=== PATIENT | female | born 1990 | race Caucasian/White ===

== ENCOUNTER 2021-01-21 09:21 | Observation (INO) ==
[2021-01-21] MEDS ORDERED: IOPAMIDOL 100 ML BOTTLE IV ONE (09:22)
[2021-01-21] MEDS ORDERED: 0.9 % SODIUM CHLORIDE 1,000 ML IV ONE (09:34)
--- NOTE | 2021-01-21 09:37 | Emergency Department Note ---
HPI General Chief complaint: Cold/Flu Symptoms Stated complaint: Cold/Flu Time Seen by Provider: 01/21/21 11:34 Source: patient Mode of arrival: wheelchair Limitations: no limitations History of Present Illness HPI Narrative: Narrative: Patient presents emergency department for evaluation of 1 week history of exerti onal shortness of breath. Her Fitbit has registered her resting heart rate to be 1 10-1 50. Symptoms are associated with mild cough, congestion, body aches. She is referred to the emergency department by her primary care provider for further evaluation. No other complaints. Related Data Home Medications Medication Instructions Recorded Confirmed cholecalciferol (vitamin D3) 50 50 mcg PO QDAY cap 08/06/20 01/21/21 mcg (2,000 unit) capsule Previous Rx's Medication Instructions Recorded hydroxyzine HCl 50 mg tablet 50 mg PO TID PRN #90 tab 12/28/20 meloxicam 15 mg tablet 15 mg PO QDAY #90 tab 12/28/20 bupropion HCl 150 mg 24 hr tablet, 150 mg PO QAM #60 tab 01/18/21 extended release desogestrel 0.15 mg-ethinyl 1 tab PO QDAY #84 tab 01/18/21 estradiol 0.03 mg tablet lorazepam 0.5 mg tablet 0.5 mg PO QDAY PRN #30 tab MDD 1 01/18/21 propranolol 60 mg capsule,24 60 mg PO QHS #90 cap 01/18/21 hr,extended release spironolactone 25 mg tablet 25 mg PO QDAY #30 tab 01/18/21 duloxetine 30 mg capsule,delayed 90 mg PO QDAY #90 cap 01/19/21 release Allergies Allergy/AdvReac Type Severity Reaction Status Date / Time Penicillins Allergy Intermediate Hives Verified 12/28/20 12:59 Review of Systems ROS ROS Narrative: Narrative: As above, all other system reviewed and negative. PFSH Narrative Patient History Narrative: Narrative: Reviewed Medical/Surgical/Family History All Active Problems (Updated 01/21/21 @ 16:51 by Jai Crabtree MD) Pulmonary embolism (Acute) Shortness of breath (Acute) Hypersomnia (Acute) Lower extremity edema (Chronic) Low back pain (Acute) Generalized hyperhidrosis (Acute) Right knee pain (Acute) Nausea (Acute) Cough (Acute) Sore throat (Acute) Benign essential tremor (Acute) Depression (Acute) Sore throat (Chronic) History of surgery (Chronic) Radiculopathy, cervical region (Chronic) Spondylosis without myelopathy or radiculopathy, cervical region (Chronic) Bereavement reaction (Chronic) Occasional tremors (Chronic) Wellness examination (Chronic) History of surgical procedure (Chronic) History of tonsillectomy (Chronic ~2013) Osteoarthritis of neck (Chronic ~2015) Migraines (Chronic ~2015) Joint pain (Chronic ~2009) Insomnia (Chronic ~2017) Depression (Chronic ~2007) Arthritis of neck (Chronic ~2015) Anxiety (Chronic ~2014) Anemia (Chronic ~2011) URI, acute (Chronic) Polycystic ovarian syndrome (Chronic ~2015) Obesity (Chronic) Hypertension (Chronic) Chronic pain (Chronic) Cervicalgia (Chronic) Myofascial pain (Chronic) Ankle sprain and strain (Chronic) Medical History Anemia (~2011) Anxiety (~2014) Arthritis of neck (~2015) Cervicalgia Chronic pain Cough Depression (~2007) Hypertension Insomnia (~2017) Joint pain (~2009) ankles/neck Migraines (~2015) Myofascial pain Nausea Obesity Occasional tremors Osteoarthritis of neck (~2015) Polycystic ovarian syndrome (~2015) Radiculopathy, cervical region Right knee pain Sore throat Spondylosis without myelopathy or radiculopathy, cervical region Surgical History History of surgery MBB #2 Bilat C2-7 w/sed 02/10/2001/05 MBB #1 Bilat C2-7 w/sed 01/16/2011/05 ANGELIQUE #2 w/cath, w/sed 11/14/1911/05 ANGELIQUE #1 w/cath, w/sed 10/24/2019 History of surgical procedure IV catheter steroid injections in neck-2019. Nerve block in neck History of tonsillectomy (~2013) Family History Mother Arthritis Type 1 diabetes High blood pressure Thyroid disease Chronic pain Drug abuse Father Arthritis Drug abuse Type 1 diabetes Alcohol abuse Family/Other Heart disease Grandparent Type 1 diabetes Grandparent Other Breast cancer Dementia Social History Smoking Status: Never smoker Alcohol Intake Frequency: holiday/special occasion only Substance Use: does not use Exam Narrative Narrative: Narrative: Vital signs blood pressure 120/92 pulse 98 temperature 97.0 respirations 18 satting 96%. General Limitations: no limitations Head Head: Present atraumatic, normocephalic and normal inspection Eye Eye: Present normal appearance, PERRL and EOMI ENT ENT: Present normal exam Neck Neck: Present normal inspection; Absent meningismus Respiratory Respiratory: Absent respiratory distress Extremities Extremities: Present normal inspection Neurological Neurological: Present alert, oriented X3 and CN II-XII intact; Absent motor sensory deficit Psychiatric Psychiatric: Present normal affect and normal mood Skin Skin: Present warm (WNL) and dry Course Vital Signs Vital signs: Vital Signs Temperature 97.0 F 01/21/21 09:23 Pulse Rate 98 H 01/21/21 09:23 Respiratory Rate 18 01/21/21 09:23 Blood Pressure 128/92 01/21/21 09:23 Pulse Oximetry (%) 96 01/21/21 09:23 Temperature 97.0 F 01/21/21 09:23 Pulse Rate 87 01/21/21 16:01 Respiratory Rate 17 01/21/21 10:51 Blood Pressure 130/85 01/21/21 16:01 Pulse Oximetry (%) 94 01/21/21 16:01 [facility] MDM Narrative Medical decision making narrative: Narrative: EKG shows sinus rhythm, no acute ischemic changes, intervals otherwise normal. Chest x-ray shows no acute cardiopulmonary pathology. Patient is hydrated IV fluids. CT is read by radiology as positive for bilateral pulmonary embolism. I spoke with Dr. Donahue local interventional radiologist. Case reviewed in detail over the phone. Interventional radiology did not feel the patient needed lysis at this time. The patient was medicated with Lovenox 150 mg after discussion with pharmacy. I spoke with on-call hospitalist. Case reviewed in detail over phone. Hospitalist agreed with admission. Discussed findings with patient. Her quest ions were answered. She is agreeable with the plan. Lab Data Result diagrams: 01/21/21 11:12 01/21/21 11:12 Labs: Lab Results 01/21/21 01/21/21 01/21/21 Range/Units 11:12 11:12 11:12 WBC 9.1 (4.5-11.0) K/mcL RBC 4.71 (4.00-5.20) M/mcL Hgb 14.3 (12.0-15.0) g/dL Hct 42.5 (36.0-48.0) % MCV 90.2 (80.0-100.0) fL MCH 30.4 (26.0-34.0) pg MCHC 33.6 (31.0-36.0) g/dL RDW 12.5 (11.5-14.5) % Plt Count 249 (140-440) K/mcL MPV 9.4 (7.4-10.4) fL Neut % (Auto) 68.1 (38.0-78.0) % Lymph % (Auto) 23.8 (15.0-49.0) % [place] % (Auto) 6.3 (1.0-12.0) % Eos % (Auto) 1.4 (0.0-7.0) % Baso % (Auto) 0.4 (0.0-2.0) % Lymph # (Auto) 2.17 (1.50-4.80) K/mcL [place] # (Auto) 0.57 (0.10-0.90) K/mcL Eos # (Auto) 0.13 (0.00-0.70) K/mcL Baso # (Auto) 0.04 (0.00-0.20) K/mcL Absolute Neutrophils 6.21 (1.80-8.00) K/mcL Sodium 134 (133-145) mmol/L Potassium 4.4 (3.3-5.1) mmol/L Chloride 102 (96-108) mmol/L Carbon Dioxide 21 L (22-30) mmol/L Anion Gap 11.0 (8.0-16.0) BUN 11 (6-20) mg/dL Creatinine 0.7 (0.6-1.1) mg/dL GFR Calculation 117 Glucose 101 (70-105) mg/dL Calcium 8.4 L (8.6-10.4) mg/dL Troponin T < 0.01 (<0.03) ng/mL ED POC Tests ED POC Tests: DAVONTE - SARS Antigen Negative Discharge Plan Patient/Caregiver Discharge Instructions Pt seen by SOFTWARE REVERSE ENGINEER/PA only: No Clinical Impression: Pulmonary embolism Patient Disposition: Xfer As Inpt ([facility]) Follow up with: Linda Guillaume PA-C [Primary Care Provider] - Prescriptions: No Action spironolactone 25 mg tablet 25 mg PO QDAY Qty: 30 RF: 3 desogestrel-ethinyl estradiol [Enskyce] 0.15-0.03 mg tablet 1 tab PO QDAY Qty: 84 RF: 1 propranolol 60 mg capsule,extended release 24 hr 60 mg PO QHS Qty: 90 RF: 1 bupropion HCl [Wellbutrin XL] 150 mg tablet extended release 24 hr 150 mg PO QAM Qty: 60 RF: 1 lorazepam 0.5 mg tablet 0.5 mg PO QDAY MDD 1 PRN (Reason: anxiety) Qty: 30 RF: 0 duloxetine 30 mg capsule,delayed release(DR/EC) 90 mg PO QDAY Qty: 90 RF: 2 cholecalciferol (vitamin D3) [Vitamin D3] 50 mcg (2,000 unit) capsule 50 mcg PO QDAY RF: 0 hydroxyzine HCl 50 mg tablet 50 mg PO TID PRN (Reason: anxiety) Qty: 90 RF: 2 meloxicam 15 mg tablet 15 mg PO QDAY Qty: 90 RF: 1
--- NOTE | 2021-01-21 10:07 | XRay Report ---
INDICATION: sob TECHNIQUE: AP portable semiupright chest x-ray COMPARISON: None FINDINGS: Lungs:Lungs are negative. No focal pulmonary parenchymal infiltrate or mass Heart, vascular:No significant cardiomegaly. Pulmonary vascularity is normal. No pulmonary edema or pulmonary congestion. Heart size appears prominent but this is probably due to patient's large body habitus, and AP positioning Mediastinum, juan:No mediastinal widening. No hilar mass Pleura:No pleural fluid. No pleural-based mass or calcification Skeletal:Negative. IMPRESSION: Negative AP chest x-ray Interpreted and Authenticated by: Nicolas Graham 01/21/21
[2021-01-21 11:44] LABS: Basophils # (Auto) 0.04 K/mcL (0.00-0.20); Basophils % (Auto) 0.4 % (0.0-2.0); Eosinophils # (Auto) 0.13 K/mcL (0.00-0.70); Eosinophils % (Auto) 1.4 % (0.0-7.0); Hematocrit 42.5 % (36.0-48.0); Hemoglobin 14.3 g/dL (12.0-15.0); Lymphocytes # (Auto) 2.17 K/mcL (1.50-4.80); Lymphocytes % (Auto) 23.8 % (15.0-49.0); Mean Cell Volume 90.2 fL (80.0-100.0); Mean Corpuscular HGB Conc 33.6 g/dL (31.0-36.0); Mean Platelet Volume 9.4 fL (7.4-10.4); Monocytes # (Auto) 0.57 K/mcL (0.10-0.90); Monocytes % (Auto) 6.3 % (1.0-12.0); Neutrophils % (Auto) 68.1 % (38.0-78.0); Platelet Count 249 K/mcL (140-440); RBC 4.71 M/mcL (4.00-5.20); Red Cell Distribution Width 12.5 % (11.5-14.5); WBC 9.1 K/mcL (4.5-11.0)
[2021-01-21 12:11] LABS: Blood Urea Nitrogen 11 mg/dL (6-20); Calcium 8.4 mg/dL (8.6-10.4); Carbon Dioxide 21 mmol/L (22-30); Chloride 102 mmol/L (96-108); Glomerular Filtration Rate 117; Glucose 101 mg/dL (70-105)
--- NOTE | 2021-01-21 12:37 | Cat Scan Report ---
INDICATION: sob, tachycardia, oral control COMPARISON: Previous chest x-ray dated 01/21/2021 TECHNIQUE: Axial images obtained through the chest. 90ml Isovue 370 injected intravenously, and scanning was performed during pulmonary arterial phase. Sagittally and coronally reformatted images were obtained. MIP reformatted images. FINDINGS: Lungs:There are groundglass infiltrates in both lower lobes. Mild groundglass infiltrate in the right upper lobe. These are not apparent on plain film examination. Appearance and distribution are not typical for pulmonary infarction. Underlying covid pneumonia is suspected Mediastinum, vascular:Main pulmonary artery, right pulmonary artery, left pulmonary artery are negative. There are intraluminal emboli within both lower lobe pulmonary arteries as well as segmental lower lobe arteries bilaterally. Appearance is consistent with pulmonary emboli. There is clot in the left upper lobe pulmonary artery and segmental branches. Right upper lobe pulmonary artery is negative. There is clot within the right middle lobe pulmonary artery as well as medial and lateral segmental branches Heart:No cardiomegaly. No pericardial effusion. There is minimal reflux of contrast material into the inferior vena cava. Hepatic veins are negative. Mild right heart strain corrected Pleura:No significant pleural effusion. No pleural mass or calcification Axilla, supraclavicular regions, chest wall:No pathologic axillary or supraclavicular adenopathy. Musculoskeletal:Negative thoracic spine. No compression fracture. No lytic lesion. No rib or sternal lesions Upper Abdomen:Negative IMPRESSION: 1. Positive examination for pulmonary emboli. Lobar and segmental clot identified as above. Main pulmonary artery, right pulmonary artery, left pulmonary artery are negative. 2. Minimal reflux of contrast material into the inferior vena cava 3. Groundglass parenchymal infiltrates suggests underlying covid pneumonia The exam was performed using radiation dose optimization techniques including, but not limited to, automated exposure control, adjustment of the mA and/or kV according to patient size and use of iterative reconstruction technique. Interpreted and Authenticated by: Nicolas Graham 01/21/21
[2021-01-21] MEDS ORDERED: ENOXAPARIN 150 MG/ML SYRINGE SQ ONE ×3 (12:44→13:14)
[2021-01-21] MEDS ORDERED: ENOXAPARIN 30 MG/0.3 ML SYRINGE SQ ONE (13:00)
[2021-01-21] MEDS ORDERED: LORazepam 0.5 MG TABLET PO ONE (14:13)
--- NOTE | 2021-01-21 15:20 | Internal Med History&Physical ---
HPI History of Present Illness Patient information: Note initiated : 01/21/21 at 3:14 pm Service Date, if different from initiated Date: [] Patient: Dolly Hurst a 30 y/o F admitted on for Cold/Flu. Chief Complaint: [] History of present illness: Ms. Hurst is a 30 year old F Presents the ED with shortness of breath. Patient noticed sudden onset shortness of breath on Monday and has not gotten any better. She gets severely short of breath with any exertion and getting up and just walk across the room. In the ED her heart rate was initially 150. Blood pressure was stable. She was satting well on room air. Labs were unremarkable. She received a Covid vaccine in July. Denies chest pain. Denies cough. She had a moderate amount of clot burden including bilateral lower lobe pulmonary arteries and segmental lower lobe bilaterally. Also clot in left upper lobe pulmonary artery and segmental branches. Right upper lobe pulmonary artery negative and clot in the right middle lobe pulmonary artery and medial lateral segments. CTA only mild strain. Case discussed with Dr. Donahue who felt she did not need any lysis but but did recommend heparin initiation and then transition to DOAC.. She denies a history of clots or family history of clots. Does have risk factor of obesity but also is on an estrogen-containing oral contraceptive pill. Review of Systems: Pertinent positives as above plus headaches which are common for her. Denies fever/chills/nausea/vomiting/chest or abdominal pain/cough/diarrhea. Remaining 10 point review of system reviewed negative PFSH PFSH All Active Problems Shortness of breath (Acute) Hypersomnia (Acute) Lower extremity edema (Chronic) Low back pain (Acute) Generalized hyperhidrosis (Acute) Right knee pain (Acute) Nausea (Acute) Cough (Acute) Sore throat (Acute) Benign essential tremor (Acute) Depression (Acute) Sore throat (Chronic) History of surgery (Chronic) Radiculopathy, cervical region (Chronic) Spondylosis without myelopathy or radiculopathy, cervical region (Chronic) Bereavement reaction (Chronic) Occasional tremors (Chronic) Wellness examination (Chronic) History of surgical procedure (Chronic) History of tonsillectomy (Chronic ~2013) Osteoarthritis of neck (Chronic ~2015) Migraines (Chronic ~2015) Joint pain (Chronic ~2009) Insomnia (Chronic ~2017) Depression (Chronic ~2007) Arthritis of neck (Chronic ~2015) Anxiety (Chronic ~2014) Anemia (Chronic ~2011) URI, acute (Chronic) Polycystic ovarian syndrome (Chronic ~2015) Obesity (Chronic) Hypertension (Chronic) Chronic pain (Chronic) Cervicalgia (Chronic) Myofascial pain (Chronic) Ankle sprain and strain (Chronic) Medical History Anemia (~2011) Anxiety (~2014) Arthritis of neck (~2016) Cervicalgia Chronic pain Cough Depression (~2007) Hypertension Insomnia (~2017) Joint pain (~2009) ankles/neck Migraines (~2015) Myofascial pain Nausea Obesity Occasional tremors Osteoarthritis of neck (~2015) Polycystic ovarian syndrome (~2015) Radiculopathy, cervical region Right knee pain Sore throat Spondylosis without myelopathy or radiculopathy, cervical region Surgical History History of surgery MBB #2 Bilat C2-7 w/sed 02/10/2001/05 MBB #1 Bilat C2-7 w/sed 01/16/2011/05 ANGELIQUE #2 w/cath, w/sed 11/14/1911/05 ANGELIQUE #1 w/cath, w/sed 10/24/2019 History of surgical procedure IV catheter steroid injections in neck-2019. Nerve block in neck History of tonsillectomy (~2013) Family History Mother Arthritis Type 1 diabetes High blood pressure Thyroid disease Chronic pain Drug abuse Father Arthritis Drug abuse Type 1 diabetes Alcohol abuse Family/Other Heart disease Grandparent Type 1 diabetes Grandparent Other Breast cancer Dementia Social History marital status: single education level: college occupational status: employed occupation: [employer] smoking status: Never smoker alcohol intake frequency: holiday/special occasion only substance use type: does not use MEDS/ALLERGIES Home Medications and Allergies Home Medications Medication Instructions Recorded Confirmed Type cholecalciferol (vitamin D3) 50 50 mcg PO QDAY cap 08/06/20 01/21/21 History mcg (2,000 unit) capsule hydroxyzine HCl 50 mg tablet 50 mg PO TID PRN #90 tab 12/28/20 01/21/21 Rx meloxicam 15 mg tablet 15 mg PO QDAY #90 tab 12/28/20 01/21/21 Rx bupropion HCl 150 mg 24 hr tablet, 150 mg PO QAM #60 tab 01/18/21 01/21/21 Rx extended release desogestrel 0.15 mg-ethinyl 1 tab PO QDAY #84 tab 01/18/21 01/21/21 Rx estradiol 0.03 mg tablet lorazepam 0.5 mg tablet 0.5 mg PO QDAY PRN #30 tab MDD 1 01/18/21 01/21/21 Rx propranolol 60 mg capsule,24 60 mg PO QHS #90 cap 01/18/21 01/21/21 Rx hr,extended release spironolactone 25 mg tablet 25 mg PO QDAY #30 tab 01/18/21 01/21/21 Rx duloxetine 30 mg capsule,delayed 90 mg PO QDAY #90 cap 01/19/21 01/21/21 Rx release Allergies Allergy/AdvReac Type Severity Reaction Status Date / Time Penicillins Allergy Intermediate Hives Verified 12/28/20 12:59 EXAM Constitutional Vitals: Temp Pulse Resp BP Pulse Ox 97.0 F 90 17 132/96 95 01/21/21 09:23 01/21/21 14:31 01/21/21 10:51 01/21/21 14:31 01/21/21 14:31 Exam: General: Alert, Awake, No acute distress, obese Eyes/N/T: EOMI, PERRL, Head/Neck: neck supple, normocephalic atraumatic CV: RRR, No murmurs, normal s1/s2 Pulm: Clear b/l, no wheezing/rhonchi/rales Abd: soft, nontender, +BS x4 Ext: no clubbing/cyanosis/edema Neuro: Alert, no focal deficits, moves all extremities, CN 2-12 grossly intact, symmetrical strength b/l upper/lower, sensations intact b/l upper/lower Skin: warm/dry DATA Data Completed and Pending Labs: Labs from last 24 hours 01/21/21 01/21/21 01/21/21 11:12 11:12 11:12 WBC 9.1 RBC 4.71 Hgb 14.3 Hct 42.5 MCV 90.2 MCH 30.4 MCHC 33.6 RDW 12.5 Plt Count 249 MPV 9.4 Neut % (Auto) 68.1 Lymph % (Auto) 23.8 [place] % (Auto) 6.3 Eos % (Auto) 1.4 Baso % (Auto) 0.4 Lymph # (Auto) 2.17 [place] # (Auto) 0.57 Eos # (Auto) 0.13 Baso # (Auto) 0.04 Absolute Neutrophils 6.21 Sodium 134 Potassium 4.4 Chloride 102 Carbon Dioxide 21 L Anion Gap 11.0 BUN 11 Creatinine 0.7 GFR Calculation 117 Glucose 101 Calcium 8.4 L Troponin T < 0.01 A/P Narrative A/P Narrative: A: *b/l pulmonary emboli, moderate burden: -Tachycardic but not hypoxic at this point *Obesity: *PCOS: *dePression/anxiety: * P: -IV heparin for 24-hours then DOAC -hypercoag w/u -d/c OCP (has estrogen component) -monitor for o2 needs -cont psych meds - -ppx: heparin Time Spent With Patient Time: Total time spent is greater than 50% in coordination of care (as documented) at patient's floor/unit and/or counseling patient:
--- NOTE | 2021-01-21 16:01 | EKG ---
[facility] Test Date: 2021-01-21 Pat Name: Dolly Hurst Department: ED Room: Gender: Female Chemical Maker: BEE : 1990 Requested By: Jai Crabtree Order Number: [id number] Reading MD: Juan Dunbar M.D. Measurements Intervals [place] Rate: 94 P: 69 MS: 137 QRS: 91 QRSD: 84 T: 61 QT: 394 QTc: 493 Interpretive Statements Sinus rhythm Borderline right axis deviation Borderline prolonged QT interval Baseline wander in lead(s) V2,V3,V4,V5,V6 NO PRIOR TRACING FOR COMPARISON BORDERLINE TRACING Electronically Signed On 01-21-2021 16:00:50 PDT by Juan Dunbar M.D. /[facility] [place]//[id number]/ecg/[id number]
[2021-01-21] MEDS ORDERED: IPRATROPIUM/ALBUTEROL 3 ML AMPUL.NEB NEB PRN (19:26)
[2021-01-21] MEDS ORDERED: POTASSIUM CHLORIDE 20 MEQ TABLET PO PRN ×2 (19:26)
[2021-01-21] MEDS ORDERED: ACETAMINOPHEN 325 MG TABLET PO PRN (19:26)
[2021-01-21] MEDS ORDERED: MAGNESIUM SULFATE 2 GM/50 ML BAG IV PRN (19:26)
[2021-01-21] MEDS ORDERED: SENNOSIDES 1 TABLET PO PRN (19:26)
[2021-01-21] MEDS ORDERED: POTASSIUM CHLORIDE 40 MEQ in DEXTROSE 5% IN WATER 500 ML IV PRN (19:26)
[2021-01-21] MEDS ORDERED: LORazepam 0.5 MG TABLET PO PRN (19:26)
[2021-01-21] MEDS ORDERED: ONDANSETRON 4 MG/2 ML VIAL IV PRN (19:26)
[2021-01-21] MEDS: 0.9 % SODIUM CHLORIDE 10 ML SYRINGE IV SCH (20:45)
[2021-01-21] MEDS ORDERED: hydrOXYzine 25 MG TABLET PO PRN (21:11)
[2021-01-21] MEDS ORDERED: MELOXICAM 7.5 MG TABLET PO PRN (21:12)
[2021-01-21] MEDS: DOCUSATE SODIUM 100 MG CAPSULE PO SCH (21:12)
[2021-01-21] MEDS: PROPRANOLOL 60 MG CAP.XL.24H PO SCH (21:26)
[2021-01-22] MEDS: 0.9 % SODIUM CHLORIDE 10 ML SYRINGE IV SCH ×4 (00:05→20:06)
[2021-01-22] MEDS: HEPARIN SOD,PORK IN 0.45% NACL 25,000 UNIT in PREMIX 1 BAG IV SCH ×3 (00:10→23:46)
[2021-01-22] MEDS ORDERED: PREMIX 2 BAG IV ONE (00:21)
[2021-01-22] MEDS: DOCUSATE SODIUM 100 MG CAPSULE PO SCH ×2 (07:54→19:42)
--- NOTE | 2021-01-22 07:54 | Internal Med Progress Note ---
SUBJECTIVE Subjective Patient information: Note initiated : 01/22/21 at 7:50 am Service Date, if different from initiated Date: [] Patient: Dolly Hurst a 30 y/o F admitted on 01/21/21 for Cold/Flu. Chief Complaint: [] Interval history: History of present illness: Ms. Hurst is a 30 year old F Presents the ED with shortness of breath. Patient noticed sudden onset shortness of breath on Monday and has not gotten any better. She gets severely short of breath with any exertion and getting up and just walk across the room. In the ED her heart rate was initially 150. Blood pressure was stable. She was satting well on room air. Labs were unremarkable. She received a Covid vaccine in July. Denies chest pain. Denies cough. She had a moderate amount of clot burden including bilateral lower lobe pulmonary arteries and segmental lower lobe bilaterally. Also clot in left upper lobe pulmonary artery and segmental branches. Right upper lobe pulmonary artery negative and clot in the right middle lobe pulmonary artery and medial lateral segments. CTA only mild strain. Case discussed with Dr. Donahue who felt she did not need any lysis but but did recommend heparin initiation and then transition to DOAC.. She denies a history of clots or family history of clots. Does have risk factor of obesity but also is on an estrogen-containing oral contraceptive pill. 01/22 Doing a little better today. Adjusting heparin drip. No new complaints. Not tachycardic anymore. Continue insulin drip overnight and transition to Eliquis in the morning and then discharge patient Did have some nausea but no other complaints. Review of Systems: denies headache/fever/chills/vomiting/chest or abdominal pain/cough/dyspnea/diarrhea. Otherwise see above. Constitutional Vitals: Vital Signs Temp Pulse Resp BP Pulse Ox 97.3 F 73 22 133/62 96 01/22/21 04:01 01/22/21 04:01 01/22/21 02:01 01/22/21 04:01 01/22/21 04:01 Period Temp Pulse Resp BP Sys/Jamison Pulse Ox Last 24 Hr 97.0 F-97.5 F 73-98 17-30 110-153/59-106 94-100 Intake and Output 01/21/21 01/22/21 01/22/21 21:59 05:59 13:59 Intake Total 360 Output Total 800 Balance -440 Weight 176.72 kg Intake & Output: Intake & Output 01/21/21 01/22/21 01/22/21 21:59 05:59 13:59 Intake Total 360 Output Total 800 Balance -440 Weight 176.72 kg Intake: Oral 360 Output: Void Amount 800 Other: Meal Snack-2 tuna salads with crackers Percent of Meal Consumed 100% Urine Appearance Clear Urine Color Dark [place] Urine Odor Normal Exam: General: Alert, Awake, No acute distress, obese Eyes/N/T: EOMI, , Head/Neck: neck supple, CV: RRR, No murmurs, Pulm: Clear b/l, no wheezing/rhonchi/rales Abd: soft, nontender, +BS x4 Ext: no clubbing/cyanosis/edema Neuro: Alert, no focal deficits, moves all extremities, Skin: warm/dry OBJ DATA Labs CBC & Chem 7: 01/21/21 11:12 01/21/21 11:12 Labs: Abnormal Lab Results 01/21/21 11:12 Carbon Dioxide 21 L Calcium 8.4 L Meds: Medications Acetaminophen (Acetaminophen 325 Mg Tablet) 650 mg PO Q6HP PRN PRN Reason: PAIN/FEVER > 101 Last Admin: 01/21/21 21:26 Dose: 650 mg Documented by: Albuterol/Ipratropium (Ipratropium/Albuterol 3 Ml Ampul.Neb) 3 ml NEB Q4HP PRN PRN Reason: Shortness Of Breath Bupropion HCl (Bupropion 150 Mg Tab.Xl.24h) 150 mg PO QAM NENA Docusate Sodium (Docusate Sodium 100 Mg Capsule) 100 mg PO BID NENA Last Admin: 01/21/21 21:12 Dose: Not Given Documented by: Duloxetine HCl (Duloxetine 30 Mg Capsule) 90 mg PO QDAY NENA Hydroxyzine HCl (Hydroxyzine 25 Mg Tablet) 50 mg PO TIDP PRN PRN Reason: anxiety Potassium Chloride 40 meq/ (Dextrose) 520 mls @ 130 mls/hr IV UD PRN PRN Reason: Potassium < 3 Magnesium Sulfate (Magnesium Sulfate) 2 gm in 50 mls @ 50 mls/hr IV UD PRN PRN Reason: Magnesium </= 1.6 Heparin Sodium/Sodium Chloride (25,000 unit/ Premix) 500 mls @ 36.72 mls/hr IV .[id number] [facility]; Protocol Last Admin: 01/22/21 00:10 Dose: 18 unit/kg/hr, 36.72 mls/hr Documented by: Lorazepam (Lorazepam 0.5 Mg Tablet) 0.5 mg PO QDAY PRN PRN Reason: anxiety Meloxicam (Meloxicam 7.5 Mg Tablet) 15 mg PO DAILYP PRN PRN Reason: Pain Ondansetron HCl (Ondansetron 4 Mg/2 Ml Vial) 4 mg IV Q4HP PRN PRN Reason: Nausea And Vomiting Potassium Chloride (Potassium Chloride 20 Meq Tablet) 40 meq PO UD PRN PRN Reason: Potssium is 3-3.5 Potassium Chloride (Potassium Chloride 20 Meq Tablet) 40 meq PO UD PRN PRN Reason: Potassium < 3 Propranolol HCl (Propranolol 60 Mg Cap.Xl.24h) 60 mg PO QHS [facility] Last Admin: 01/21/21 21:26 Dose: 60 mg Documented by: Senna (Sennosides 1 Tablet) 2 tab PO DAILYP PRN PRN Reason: Constipation Sodium Chloride (0.9 % Sodium Chloride 10 Ml Syringe) 10 ml IV Q8 [facility] Last Admin: 01/22/21 05:57 Dose: 10 ml Documented by: Spironolactone (Spironolactone 25 Mg Tablet) 25 mg PO QDAY [facility] A/P Narrative A/P Narrative: A: *b/l pulmonary emboli, moderate burden: -on admit pt Tachycardic but not hypoxic *Obesity: *PCOS: *depression/anxiety: P: -IV heparin today and transition to DOAC in morning -hypercoag w/u pending, send out labs -d/c home OCP (has estrogen component) -monitor for o2 needs -cont psych meds -ppx: heparin Time Spent With Patient Time: Total time spent is greater than 50% in coordination of care (as documented) at patient's floor/unit and/or counseling patient: QUALITY Stroke Symptom Onset Unknown: No VTE Deep Vein Thrombosis/Pulmonary Embolism Present on Admission: Yes
[2021-01-22] MEDS: DULoxetine 30 MG CAPSULE PO SCH (08:01)
[2021-01-22] MEDS: SPIRONOLACTONE 25 MG TABLET PO SCH (08:01)
[2021-01-22] MEDS: buPROPion 150 MG TAB.XL.24H PO SCH (08:01)
[2021-01-22] MEDS ORDERED: HEPARIN 5,000 UNIT/ML VIAL IV ONE ×2 (09:30→18:39)
--- NOTE | 2021-01-22 11:26 | Discharge Summary ---
Discharge Provider Provider Patient information: Note initiated : 01/22/21 at 11:24 am Service Date, if different from initiated Date: [] Patient: Dolly Hurst a 30 y/o F admitted on 01/21/21 for Cold/Flu. Chief Complaint: [] Date of admission: 01/21/21 19:05 Discharge date: 01/23/21 Primary care physician: Linda Guillaume PA-C Consults: 01/22/21 07:25 Consult to Physician [CONS] Routine Comment: Consulting Provider: Cirilo Ritter Reason For Exam: Physician to Consult Discharge Meds Discharge Medications Home Medications cholecalciferol (vitamin D3) 50 mcg (2,000 unit) capsule 50 mcg PO QDAY cap 08/06/20 [History Confirmed 01/21/21 Last Taken 01/21/21 08:00] hydroxyzine HCl 50 mg tablet 50 mg PO TID PRN #90 tab 12/28/20 [Rx Confirmed 01/21/21 Last Taken 01/20/21 19:30] meloxicam 15 mg tablet 15 mg PO QDAY #90 tab 12/28/20 [Rx Confirmed 01/21/21 Last Taken 01/20/21 08:00] lorazepam 0.5 mg tablet 0.5 mg PO QDAY PRN #30 tab MDD 1 01/18/21 [Rx Confirmed 01/21/21 Last Taken 01/21/21 17:00] propranolol 60 mg capsule,24 hr,extended release 60 mg PO QHS #90 cap 01/18/21 [Rx Confirmed 01/21/21 Last Taken 01/20/21 19:30] spironolactone 25 mg tablet 25 mg PO QDAY #30 tab 01/18/21 [Rx Confirmed 01/21/21 Last Taken 01/21/21 08:00] bupropion HCl 150 mg PO HS 01/21/21 [History Confirmed 01/21/21 Last Taken 01/20/21 19:30] duloxetine 90 mg PO QHS 01/21/21 [History Confirmed 01/21/21 Last Taken 01/20/21 19:30] apixaban [Eliquis] 5 mg PO BID #180 tab 01/22/21 [Rx Last Taken Unknown] COURSE Hospital Course Hospital course: Interval history: History of present illness: Ms. Hurst is a 30 year old F Presents the ED with shortness of breath. Patient noticed sudden onset shortness of breath on Monday and has not gotten any better. She gets severely short of breath with any exertion and getting up and just walk across the room. In the ED her heart rate was initially 150. Blood pressure was stable. She was satting well on room air. Labs were unremarkable. She received a Covid vaccine in July. Denies chest pain. Denies cough. She had a moderate amount of clot burden including bilateral lower lobe pulmonary arteries and segmental lower lobe bilaterally. Also clot in left upper lobe pulmonary artery and segmental branches. Right upper lobe pulmonary artery negative and clot in the right middle lobe pulmonary artery and medial lateral segments. CTA only mild strain. Case discussed with Dr. Donahue who felt she did not need any lysis but but did recommend heparin initiation and then transition to DOAC.. She denies a history of clots or family history of clots. Does have risk factor of obesity but also is on an estrogen-containing oral contraceptive pill. 01/22 Doing a little better today. Adjusting heparin drip. No new complaints. Not tachycardic anymore. Continue insulin drip overnight and transition to Eliquis in the morning and then discharge patient Did have some nausea but no other complaints. 01/23 No issues overnight. On room air. Vital signs stable. In addition to Eliquis. A/P Narrative: *b/l pulmonary emboli, moderate burden: -on admit pt Tachycardic but not hypoxic *Obesity: *PCOS: *depression/anxiety: Discharge diagnosis: Bilateral pulmonary emboli Secondary discharge diagnosis: Obesity PCOS depression anxiety Time Spent with Patient Time attestation: Total time spent providing and/or coordinating discharge services: Time spent: Greater than 30 minutes EXAM Constitutional Vitals: Temp Pulse Resp BP Pulse Ox 98.1 F 75 21 150/103 96 01/22/21 08:00 01/22/21 06:01 01/22/21 08:00 01/22/21 08:00 01/22/21 08:00 Discharge Data Data Completed and Pending Labs on day of discharge: Labs from last 24 hours 01/22/21 01/22/21 01/21/21 08:12 00:13 Unknown WBC RBC Hgb Hct MCV MCH MCHC RDW Plt Count MPV Neut % (Auto) Lymph % (Auto) Heard % (Auto) Eos % (Auto) Baso % (Auto) Lymph # (Auto) Heard # (Auto) Eos # (Auto) Baso # (Auto) Absolute Neutrophils APTT 49.9 H 31.9 Func Antithrombin III Factor V Mutation Sodium Potassium Chloride Carbon Dioxide Anion Gap BUN Creatinine GFR Calculation Glucose Calcium Troponin T Beta-2-GPI IgG Ab Beta-2-GPI IgA Ab Beta-2-GPI IgM Ab Phosphatidylserine IgG Phosphatidylserine IgA Phosphatidylserine IgM Anti-Phospholipid Intrp Anti-Cardiolipin IgG Ab Anti-Cardiolipin IgA Ab Anti-Cardiolipin IgM Ab Miscellaneous Test Pending 01/21/21 01/21/21 01/21/21 20:31 20:31 20:30 WBC RBC Hgb Hct MCV MCH MCHC RDW Plt Count MPV Neut % (Auto) Lymph % (Auto) Heard % (Auto) Eos % (Auto) Baso % (Auto) Lymph # (Auto) Heard # (Auto) Eos # (Auto) Baso # (Auto) Absolute Neutrophils APTT Func Antithrombin III Pending Factor V Mutation Pending Sodium Potassium Chloride Carbon Dioxide Anion Gap BUN Creatinine GFR Calculation Glucose Calcium Troponin T Beta-2-GPI IgG Ab Pending Beta-2-GPI IgA Ab Pending Beta-2-GPI IgM Ab Pending Phosphatidylserine IgG Pending Phosphatidylserine IgA Pending Phosphatidylserine IgM Pending Anti-Phospholipid Intrp Pending Anti-Cardiolipin IgG Ab Pending Anti-Cardiolipin IgA Ab Pending Anti-Cardiolipin IgM Ab Pending Miscellaneous Test Pending 01/21/21 01/21/21 01/21/21 11:12 11:12 11:12 WBC 9.1 RBC 4.71 Hgb 14.3 Hct 42.5 MCV 90.2 MCH 30.4 MCHC 33.6 RDW 12.5 Plt Count 249 MPV 9.4 Neut % (Auto) 68.1 Lymph % (Auto) 23.8 Heard % (Auto) 6.3 Eos % (Auto) 1.4 Baso % (Auto) 0.4 Lymph # (Auto) 2.17 Heard # (Auto) 0.57 Eos # (Auto) 0.13 Baso # (Auto) 0.04 Absolute Neutrophils 6.21 APTT Func Antithrombin III Factor V Mutation Sodium 134 Potassium 4.4 Chloride 102 Carbon Dioxide 21 L Anion Gap 11.0 BUN 11 Creatinine 0.7 GFR Calculation 117 Glucose 101 Calcium 8.4 L Troponin T < 0.01 Beta-2-GPI IgG Ab Beta-2-GPI IgA Ab Beta-2-GPI IgM Ab Phosphatidylserine IgG Phosphatidylserine IgA Phosphatidylserine IgM Anti-Phospholipid Intrp Anti-Cardiolipin IgG Ab Anti-Cardiolipin IgA Ab Anti-Cardiolipin IgM Ab Miscellaneous Test Discharge Plan Patient/Caregiver Discharge Instructions Activity: increase activity as tolerated Diet: Regular Diet Instructions: Apixaban (By mouth), Pulmonary Embolism (DC), Blood Thinners (DC) Prescriptions: New Eliquis 5 mg tablet 5 mg PO BID Qty: 180 RF: 0 Continued spironolactone 25 mg tablet 25 mg PO QDAY Qty: 30 RF: 3 propranolol 60 mg capsule,extended release 24 hr 60 mg PO QHS Qty: 90 RF: 1 lorazepam 0.5 mg tablet 0.5 mg PO QDAY MDD 1 PRN (Reason: anxiety) Qty: 30 RF: 0 cholecalciferol (vitamin D3) [Vitamin D3] 50 mcg (2,000 unit) capsule 50 mcg PO QDAY RF: 0 hydroxyzine HCl 50 mg tablet 50 mg PO TID PRN (Reason: anxiety) Qty: 90 RF: 2 meloxicam 15 mg tablet 15 mg PO QDAY Qty: 90 RF: 1 bupropion HCl 150 mg Tablet Extended Release 24 Hr 150 mg PO HS RF: 0 duloxetine 30 mg Capsule,Delayed Release(Dr/Ec) 90 mg PO QHS RF: 0 Discontinued desogestrel-ethinyl estradiol [Enskyce] 0.15-0.03 mg tablet 1 tab PO QDAY Qty: 84 RF: 1 Follow Up Plan Follow up with: Linda Guillaume PA-C [Primary Care Provider] - Patient Disposition: Home, Self-Care Prognosis: Fair Overall status at discharge: patient is progressing back to baseline Discharge Orders: Discharge Order (Routine); Ordered 01/23/21 Ordered By: Cirilo Ritter [facility] Deep Vein Thrombosis/Pulmonary Embolism Present on Admission: Yes
[2021-01-22] MEDS ORDERED: HEPARIN 5,000 UNIT/ML VIAL ONE (19:14)
[2021-01-22] MEDS: PROPRANOLOL 60 MG CAP.XL.24H PO SCH (20:06)
[2021-01-22] MEDS ORDERED: HEPARIN SOD,PORK IN 0.45% NACL 500 ML IV ONE (23:47)
[2021-01-23] MEDS: HEPARIN SOD,PORK IN 0.45% NACL 25,000 UNIT in PREMIX 1 BAG IV SCH (04:36)
[2021-01-23] MEDS: 0.9 % SODIUM CHLORIDE 10 ML SYRINGE IV SCH ×2 (06:01→15:08)
[2021-01-23] MEDS: DOCUSATE SODIUM 100 MG CAPSULE PO SCH (08:39)
[2021-01-23] MEDS: buPROPion 150 MG TAB.XL.24H PO SCH (08:39)
[2021-01-23] MEDS: SPIRONOLACTONE 25 MG TABLET PO SCH (08:39)
[2021-01-23] MEDS: DULoxetine 30 MG CAPSULE PO SCH (08:39)
[2021-01-23] MEDS ORDERED: APIXABAN 5 MG TABLET PO SCH (09:00)
[2021-01-23] MEDS ORDERED: APIXABAN 5 MG TABLET PO ONE (19:58)
[2021-01-27 22:57] LABS: Beta-2 GPI IGG ABS <2.0 U/mL; Beta-2 GPI IGM ABS <2.0 U/mL; Beta-2-GPI IGA ABS <2.0 U/mL
== END 2021-01-23 19:34 | disposition home or self-care (01) ==
LOC: ICU 09:21 → ED 09:21 → ICU 19:15
PROVIDERS: ADMIT Internal Medicine; ATTEND Internal Medicine